=== PATIENT | female | born 1995 | race Caucasian/White ===

== ENCOUNTER 2019-10-13 13:05 | Emergency (ER) | payer SELFPAY ==
[~2019-10-13] VITALS: Ht 152.4 cm; Wt 81.8 kg
[2019-10-13 13:17] VITALS: BP 137/79
[2019-10-13] MEDS ORDERED: CEPH-264 PO (14:08)
--- NOTE | 2019-10-13 14:09 | PHYS DOC ---
Past Medical History Past Medical History: No Pertinent History Past Surgical History: Smoking Status: Current Every Day Smoker Alcohol Use: None Drug Use: None Adult General Chief Complaint Chief Complaint: ANKLE PROBLEM HPI HPI Patient is a 24 year old female who presents to the emergency department with complaints of left foot redness, warmth, and pain for last 3 days. Patient states that she scrubbed at a callus that was on her left lateral ankle 2 weeks ago and noticed that that area was red a few days after. She noticed that the redness was getting worse and that the pain was increasing 3 days ago. She denies any fever, numbness, tingling, injury, body aches, cough, shortness of breath, nausea, vomiting, diarrhea, or abdominal pain. She currently rates the pain a 4 out of 10 on the pain scale, the pain increases with palpation and weightbearing. Patient denies taking any medications for relief of her pain. She states that the only thing that has helped is staying off of her affected foot. Patient reports that she has had a tetanus shot in the last 5 years. Review of Systems Review of Systems Complete ROS is negative unless otherwise noted in HPI. Allergies Allergies Allergies Coded Allergies Type Severity Reaction Last Updated Verified No Known Drug Allergies 08/11/13 No Physical Exam Physical Exam See Above Constitutional: Well developed, well nourished, no acute distress, non-toxic fred earance. [] HENT: Normocephalic, atraumatic, bilateral external ears normal, nose normal. [] Eyes: PERRLA, EOMI, conjunctiva normal, no discharge. [] Neck: Normal range of motion, no stridor. [] Cardiovascular:Heart rate regular rhythm Lungs & Thorax: Respirations even and unlabored, no retractions, no respiratory distress Skin: Warm, dry; erythema and warmth noted to the lateral left ankle and to the dorsal surface of the left foot and toes, no drainage, 1+ edema, with warmth present consistent with nonpurulent cellulitis Extremities: L foot: No bony tenderness or deformity, no cyanosis, no clubbing, PMS intact Neurologic: Alert and oriented X 3, no focal deficits noted. [] Psychologic: Affect normal, judgement normal, mood normal. [] Current Patient Data Vital Signs Vital Signs Date Time Temp Pulse Resp B/P (MAP) Pulse Ox O2 Delivery O2 Flow Rate FiO2 10/13/19 13:17 98.1 85 16 137/79 (98) 98 Room Air 98.1 EKG EKG [] Radiology/Procedures Radiology/Procedures [] Course & Med Decision Making Course & Med Decision Making Pertinent Labs and Imaging studies reviewed. (See chart for details) [] Dragon Disclaimer Dragon Disclaimer This electronic medical record was generated, in whole or in part, using a voice recognition dictation system. Departure Departure Impression: Primary Impression: Cellulitis of left foot Disposition: HOME, SELF-CARE Condition: STABLE Referrals: NO PCP (PCP) Patient Instructions: Cellulitis, [id number] Additional Instructions: Fill the prescription(s) and use as directed. You may take tylenol as needed for pain. Apply warm, moist packs to the area 4x a day to help decrease discomfort. Follow up with your primary care doctor if symptoms persist. Return to the ER sooner if your symptoms worsen. Scripts Cephalexin (KEFLEX) 500 Mg Capsule 500 MG PO QID for 7 Days, #28 CAP 0 Refills Prov: GURPREET HEBERT APRN 10/13/19 GURPREET HEBERT APRN Oct 13, 2019 14:09
== END 2019-10-13 14:14 | disposition home or self-care (01) ==
LOC: ER 13:05
DX: L03.116 Cellulitis of left lower limb (principal); R60.0 Localized edema; F17.200 Nicotine dependence, unspecified, uncomplicated; Z98.890 Other specified postprocedural states
CPT/HCPCS: 99283